=== PATIENT | female | born 2000 | race American Indian/Alaskan Native ===

== ENCOUNTER 2019-03-18 19:18 | Outpatient (CLI) | payer MEDICAID ==
[2019-03-18] MEDS ORDERED: LACTATED RINGERS 1,000 ML IV ONE (20:17)
[2019-03-18 20:57] LABS: Bilirubin,Urine NEG (Negative); Blood,Urine NEG (Negative); Color,Urine Yellow (Yellow); Mucus,Urine FEW /HPF; Protein,Urine <15 mg/dL mg/dL (Negative); Urobilinogen,Urine < 2.0 mg/dL (<2.0)
== END 2019-03-18 22:39 | disposition home or self-care (01) ==
LOC: TRG 19:18
PROVIDERS: ATTEND Obstetrics & Gynecology
DX: O62.9 Abnormality of forces of labor, unspecified (principal); Z3A.25 25 weeks gestation of pregnancy
CPT/HCPCS: 36415; 81001; 82731; 96360; J7120

== ENCOUNTER 2019-04-30 06:43 | Inpatient (IN) | payer MEDICAID ==
[2019-04-30] MEDS ORDERED: LACTATED RINGERS 1,000 ML IV ONE (07:06)
[2019-04-30 09:09] LABS: Bilirubin,Urine NEG (Negative); Blood,Urine NEG (Negative); Color,Urine Straw (Yellow); Protein,Urine <15 mg/dL mg/dL (Negative); Urobilinogen,Urine < 2.0 mg/dL (<2.0)
[2019-04-30] MEDS ORDERED: BRETHINE SUB-Q ONE (10:05)
[2019-04-30] MEDS ORDERED: LACTATED RINGERS 1,000 ML IV SCH ×3 (11:00→14:00)
[2019-04-30] MEDS ORDERED: COLACE PO PRN (13:18)
[2019-04-30] MEDS ORDERED: MAGNESIUM SULFATE 4GM/100ML 4 GM/100 ML BAG IV ONE ×2 (13:26→16:00)
--- NOTE | 2019-04-30 13:34 | History and Physical Report ---
History of Present Illness Date of examination: 04/30/19 Date of admission: 04/30/2019 Chief complaint: LOF, contractions History of present illness: Menstrual History Regularity: regular Duration: 5 LMP: 09/19/2018 LMP reliability: definite LMP character: normal test type: urine test Date: 02/26/2019 BC at conception: none EDC Calculations LMP: 06/26/2019 EDC Confirmation: 06/26/2019 Gestational Age: 22 6/7 weeks Past History : 4 Term Births: 1 Premature Births: 2 Living Children: 3 Para: 3 Mult. Births: 0 Prev : 0 Prev. attempt? 0 Aborta: 0 Elect. Ab: 0 Spont. Ab: 0 Ectopics: 0 # 1 Delivery date: 02/07/2013 Weeks Gestation: 30? labor: yes Delivery type: Anesthesia type: epidural Delivery location: [place] Sex: Female weight: 6#8 Name: Radha Comments: unsure of GA "really early" or why she delivered early... reports induction? 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 live with mother, siblings, and siblings unemployed denies etoh, tobacco, drug use Infection History Hx of STD: none HIV Risk Eval: low risk Hepatitis B Risk Eval: low risk Personal hx. of genital herpes: no Partner hx. of genital herpes: no Rash, Viral, or Febrile illness since last LMP? no Varicella/Chicken Pox Status: Previous Disease TB Risk: no Genetic History Congenital Heart Defect: Mom: no Dad: no Bobby Disease: Mom: no Dad: no Thalassemia Mom: no Dad: no Neural Tube Defect Mom: no Dad: no Down's Syndrome Mom: no Dad: no Tye-Sachs Mom: no Dad: no Sickle Cell Disease/Trait Mom: no Dad: no Hemophilia Mom: no Dad: no Muscular Dystrophy Mom: no Dad: no Cystic Fibrosis Mom: no Dad: no [place] Chorea Mom: no Dad: no Mental Retardation Mom: no Dad: no Fragile X Mom: no Dad: no Other Genetic/Chromosomal Disorder Mom: no Dad: no Child w/other defect Mom: no Dad: no Enviromental Exposures Enviromental Exposures Reviewed Xray Exposure: no Medication, drug, or alcohol use since LMP: no Chemical/Other Exposure: no Exposure to Cat Liter: no Hx of Parvovirus (Fifth Disease): no Occupational Exposure to Children: none Active Medications (reviewed today): None Current Allergies (reviewed today): No known allergies Past History Past Medical History: other (see HPI) Past Surgical History: other (see HPI) 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 (see HPI) Family/Genetic History: other (see HPI) Social history: other (see HPI) - Obstetrical History Expected Date of Delivery: 06/26/19 Actual Gestation: 31 Week(s) 6 Day(s) : 4 Para: 1 Medications and Allergies Allergies Allergy/AdvReac Type Severity Reaction Status Date / Time No Known Allergies Allergy Verified 04/30/19 07:03 Home Medications Medication Instructions Recorded Confirmed Last Taken Type Ferrous Sulfate [Feosol 325 MG tab] 1 tab PO BID 04/30/19 04/30/19 Unknown History Pnv,Calcium 72/Iron/Folic Acid 1 each PO DAILY 04/30/19 04/30/19 04/29/19 21:00 History [ Plus Tablet] 1 Active Meds: Active Medications Acetaminophen (Tylenol) 650 mg PO Q4H PRN PRN Reason: Pain MILD(1-3)/Fever >100.5/[place] Betamethasone Acet/Betameth SodPhos (Celestone Soluspan) 12 mg IM Q24HR HANNA Stop: 05/01/19 10:01 Docusate Sodium (Colace) 100 mg PO Q12H PRN PRN Reason: Constipation Lactated Ringer's (Lactated Ringers) 1,000 mls @ 150 mls/hr IV DIRECT HANNA Last Admin: 04/30/19 10:22 Dose: 150 mls/hr Documented by: Lactated Ringer's (Lactated Ringers) 1,000 mls @ 125 mls/hr IV DIRECT HANNA Lactated Ringer's (Lactated Ringers) 1,000 mls @ 125 mls/hr IV DIRECT HANNA Magnesium Sulfate (Magnesium Sulfate 4gm/100ml) 4 gm in 100 mls @ 300 mls/hr IV ONCE ONE Stop: 04/30/19 13:45 Magnesium Sulfate (Magnesium Sulfate 40gm/1000ml) 40 gm in 1,000 mls @ 50 mls/hr IV DIRECT HANNA Multivitamins/Iron/Calcium ( Vitamin) 1 each PO QDAY HANNA Review of Systems All systems: negative Genitourinary: leakage of fluid, contractions - Vital Signs Vital signs: Vital Signs Temp Resp 99.2 F 20 04/30/19 07:07 04/30/19 07:07 Temp Pulse Resp BP Pulse Ox 97.6 F 88 20 110/65 98 04/30/19 12:24 04/30/19 12:24 04/30/19 12:24 04/30/19 12:24 04/30/19 12:11 - Physical Exam Breasts: Positive: normal Cardiovascular: Regular rate, Normal S1, Normal S2 Abdomen: Positive: normal appearance, soft, normal bowel sounds. Negative: distention, tenderness Genitourinary (Female): Positive: normal external genitalia, normal perenium Vulva: both: normal Vagina: Positive: normal moisture. Negative: discharge Cervix: Negative: lesion, discharge Uterus: Positive: normal size, normal contour Adnexa: both: normal Anus/Rectum: Positive: normal perianal skin, heme negative. Negative: rectal mass, hemorrhoids Extremities: Positive: normal Deep Tendon Reflex Grade: Normal +2 - Obstetrical FHR: auscultation normal Results Result Diagrams: 04/30/19 08:00 All other labs normal. Assessment and Plan 19 y.o. IUP at 31weeks presents to triage with c/o questionable SROM. Pt reports she had intercourse this morning and immediately following she noticed "there was wet liquid coming out" of her vagina. Nitrizine +, US for GIL is 6.6. 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 Irregular contractions noted on TOCO, palpating mild per RN. IV fluids and terb x1 given. Spec examination by CNM shows no fluid coming from cervix, no fluid pooling in vagina. SVE by CNM is 2/50/-3, vertex, IBOW noted on digital examination. Pt reports feeling better, denies any contractions after interventions. Will admit at this time-IV fluids, plan to repeat US for GIL in AM, begin magnesium infusion and give BMZ series per Dr. Fang. Will continue to monitor for signs of ROM and/or labor.
[2019-04-30] MEDS ORDERED: CELESTONE SOLUSPAN IM SCH (14:00)
[2019-04-30] MEDS ORDERED: MAGNESIUM SULFATE 40GM/1000ML 40 GM/1,000 ML BAG IV SCH (14:00)
--- NOTE | 2019-04-30 14:56 | Ultrasound Report ---
ULTRASOUND OB LIMITED History: GIL and presentation, well being Technique: Transabdominal ultrasound with Doppler interrogation. Gestation: Single Position: Cephalic Amniotic Fluid: Slightly decreased GIL = 6.6 cm Heart Rate: 132 BPM
[2019-04-30 14:58] LABS: Basophils % (Auto) 0.5 % (0.0-1.8); Eosinophils # (Auto) 0.1 K/mm3 (0.0-0.4); Eosinophils % (Auto) 2.1 % (0.0-4.3); Hematocrit 23.8 % (30.3-42.9); Hemoglobin 7.6 gm/dl (10.1-14.3); Lymphocytes # (Auto) 1.8 K/mm3 (1.2-5.4); Lymphocytes % (Auto) 31.6 % (13.4-35.0); Mean Corpuscular HGB Conc 32 % (30-34); Mean Corpuscular Volume 78 fl (79-97); Monocytes # (Auto) 0.5 K/mm3 (0.0-0.8); Monocytes % (Auto) 8.3 % (0.0-7.3); Platelet Count 221 K/mm3 (140-440); Red Blood Count 3.05 M/mm3 (3.65-5.03); Red Cell Distribution Width 17.6 % (13.2-15.2)
--- NOTE | 2019-04-30 19:26 | Event Note ---
Date: 04/30/19 RN reports "pt thinks she's leaking again and would like to be checked". Perineum and pads are dry. SVE remains unchanged, bag of water still assessed. Pt reports she is comfortable at this time. Denies any needs, questions, or concerns.
--- NOTE | 2019-04-30 20:52 | Event Note ---
Date: 04/30/19 Magnesium 4.2 per Gerardo in chemistry
[2019-04-30] MEDS: FEOSOL PO SCH (22:00)
[2019-04-30] MEDS: TYLENOL PO PRN (23:13)
--- NOTE | 2019-04-30 23:50 | Event Note ---
Date: 04/30/19 Patient reports feeling more contractions. Irritability noted on TOCO, 3 contractions noted in last hour. Abdomen palpated soft, non tender. One c ontraction noted while at bedside, palpated mild. Offered patient SVE, she declines. Pt declines any intervention at this time. Will continue to monitor.
--- NOTE | 2019-05-01 07:20 | Progress Note ---
<GONZALEZ TO - Last Filed: 05/01/19 07:21> Assessment and Plan - Patient Problems (1) 32 weeks gestation of Onset Date: ~05/01/19 Current Visit: Yes Status: Acute Plan to address problem: pt resting in bed, no physical c/o voiced Pt desires to go home VSS Pt reports +FM, denies any VB, states she has occasional leaking of fluid, none right now. MGSO4 @ 2gm/hr Mag level 5.7 Second dose of BMZ due 1634 US pending for this AM. Will review care with . Continue POC Subjective - Subjective Date of service: 05/01/19 (pt denies any leaking @ this time) Principal diagnosis: IUP 32w0d leaking vaginal fluid cervical chg; hx of PTD Patient reports: movement normal Objective - Vital Signs Vital Signs: Vital Signs - 12hr 04/30/19 04/30/19 04/30/19 19:48 19:53 19:58 Temperature Pulse Rate 95 H 96 H 97 H Respiratory Rate Blood Pressure Blood Pressure [Right] O2 Sat by Pulse 98 97 97 Oximetry 04/30/19 04/30/19 04/30/19 20:00 20:03 20:06 Temperature 98 F Pulse Rate 97 H 98 H 94 H Respiratory 18 Rate Blood Pressure 101/57 Blood Pressure 106/78 [Right] O2 Sat by Pulse 100 96 Oximetry 04/30/19 04/30/19 04/30/19 20:08 20:13 20:18 Temperature Pulse Rate 101 H 101 H 95 H Respiratory Rate Blood Pressure Blood Pressure [Right] O2 Sat by Pulse 95 95 96 Oximetry 04/30/19 04/30/19 04/30/19 20:23 20:28 20:33 Temperature Pulse Rate 95 H 108 H 99 H Respiratory Rate Blood Pressure Blood Pressure [Right] O2 Sat by Pulse 96 96 97 Oximetry 04/30/19 04/30/19 04/30/19 20:38 20:43 20:48 Temperature Pulse Rate 96 H 96 H 96 H Respiratory Rate Blood Pressure Blood Pressure [Right] O2 Sat by Pulse 97 96 97 Oximetry 04/30/19 04/30/19 04/30/19 20:53 20:58 21:03 Temperature Pulse Rate 99 H 100 H 98 H Respiratory Rate Blood Pressure Blood Pressure [Right] O2 Sat by Pulse 96 95 96 Oximetry 04/30/19 04/30/19 04/30/19 21:07 21:08 21:13 Temperature Pulse Rate 93 H 95 H 108 H Respiratory Rate Blood Pressure 82/44 Blood Pressure [Right] O2 Sat by Pulse 97 96 Oximetry 04/30/19 04/30/19 04/30/19 21:18 21:23 21:28 Temperature Pulse Rate 95 H 96 H 96 H Respiratory Rate Blood Pressure Blood Pressure [Right] O2 Sat by Pulse 96 96 96 Oximetry 04/30/19 04/30/19 04/30/19 21:33 21:38 21:43 Temperature Pulse Rate 97 H 98 H 99 H Respiratory Rate Blood Pressure Blood Pressure [Right] O2 Sat by Pulse 96 96 96 Oximetry 04/30/19 04/30/19 04/30/19 21:48 21:53 21:58 Temperature Pulse Rate 100 H 100 H 101 H Respiratory Rate Blood Pressure Blood Pressure [Right] O2 Sat by Pulse 95 95 96 Oximetry 04/30/19 04/30/19 04/30/19 22:03 22:07 22:08 Temperature Pulse Rate 100 H 107 H 107 H Respiratory Rate Blood Pressure 94/55 Blood Pressure [Right] O2 Sat by Pulse 96 96 Oximetry 04/30/19 04/30/19 04/30/19 22:13 22:18 22:23 Temperature Pulse Rate 97 H 101 H 106 H Respiratory Rate Blood Pressure Blood Pressure [Right] O2 Sat by Pulse 96 96 96 Oximetry 04/30/19 04/30/19 04/30/19 22:28 22:33 22:38 Temperature Pulse Rate 105 H 100 H 105 H Respiratory Rate Blood Pressure Blood Pressure [Right] O2 Sat by Pulse 95 98 98 Oximetry 04/30/19 04/30/19 04/30/19 22:43 22:48 22:53 Temperature Pulse Rate 97 H 109 H 97 H Respiratory Rate Blood Pressure Blood Pressure [Right] O2 Sat by Pulse 98 98 99 Oximetry 04/30/19 04/30/19 04/30/19 22:58 23:03 23:07 Temperature Pulse Rate 105 H 100 H 99 H Respiratory Rate Blood Pressure 101/59 Blood Pressure [Right] O2 Sat by Pulse 100 99 Oximetry 04/30/19 04/30/19 04/30/19 23:08 23:13 23:18 Temperature Pulse Rate 102 H 105 H 100 H Respiratory Rate Blood Pressure Blood Pressure [Right] O2 Sat by Pulse 99 98 99 Oximetry 04/30/19 04/30/19 04/30/19 23:23 23:28 23:30 Temperature Pulse Rate 102 H 106 H 115 H Respiratory Rate Blood Pressure Blood Pressure [Right] O2 Sat by Pulse 98 97 94 Oximetry 04/30/19 04/30/19 04/30/19 23:33 23:38 23:43 Temperature Pulse Rate 104 H 100 H 97 H Respiratory Rate Blood Pressure Blood Pressure [Right] O2 Sat by Pulse 97 97 97 Oximetry 04/30/19 04/30/19 04/30/19 23:48 23:53 23:58 Temperature Pulse Rate 104 H 97 H 103 H Respiratory Rate Blood Pressure Blood Pressure [Right] O2 Sat by Pulse 97 97 96 Oximetry 05/01/19 05/01/19 05/01/19 00:03 00:08 00:13 Temperature Pulse Rate 107 H 100 H 102 H Respiratory Rate Blood Pressure Blood Pressure [Right] O2 Sat by Pulse 97 98 98 Oximetry 05/01/19 05/01/19 05/01/19 00:18 00:23 00:28 Temperature 98.4 F Pulse Rate 88 104 H 100 H Respiratory Rate Blood Pressure Blood Pressure 109/59 [Right] O2 Sat by Pulse 96 96 97 Oximetry 05/01/19 05/01/19 05/01/19 00:33 00:38 00:43 Temperature Pulse Rate 103 H 106 H 102 H Respiratory Rate Blood Pressure Blood Pressure [Right] O2 Sat by Pulse 97 97 98 Oximetry 05/01/19 05/01/19 05/01/19 00:48 00:53 00:58 Temperature Pulse Rate 102 H 106 H 99 H Respiratory Rate Blood Pressure Blood Pressure [Right] O2 Sat by Pulse 98 98 97 Oximetry 05/01/19 05/01/19 05/01/19 01:03 01:07 01:08 Temperature Pulse Rate 101 H 98 H 100 H Respiratory Rate Blood Pressure 97/53 Blood Pressure [Right] O2 Sat by Pulse 97 96 Oximetry 05/01/19 05/01/19 05/01/19 01:13 01:18 01:23 Temperature Pulse Rate 102 H 98 H 114 H Respiratory Rate Blood Pressure Blood Pressure [Right] O2 Sat by Pulse 96 97 97 Oximetry 05/01/19 05/01/19 05/01/19 01:28 01:33 01:38 Temperature Pulse Rate 98 H 102 H 100 H Respiratory Rate Blood Pressure Blood Pressure [Right] O2 Sat by Pulse 98 97 96 Oximetry 05/01/19 05/01/19 05/01/19 01:43 01:48 01:53 Temperature Pulse Rate 101 H 102 H 102 H Respiratory Rate Blood Pressure Blood Pressure [Right] O2 Sat by Pulse 96 96 96 Oximetry 05/01/19 05/01/19 05/01/19 01:58 02:03 02:07 Temperature Pulse Rate 98 H 103 H 107 H Respiratory Rate Blood Pressure 92/50 Blood Pressure [Right] O2 Sat by Pulse 96 96 Oximetry 05/01/19 05/01/19 05/01/19 02:08 02:13 02:18 Temperature Pulse Rate 98 H 98 H 112 H Respiratory Rate Blood Pressure Blood Pressure [Right] O2 Sat by Pulse 98 97 98 Oximetry 05/01/19 05/01/19 05/01/19 02:23 02:28 02:33 Temperature Pulse Rate 103 H 98 H 102 H Respiratory Rate Blood Pressure Blood Pressure [Right] O2 Sat by Pulse 96 95 96 Oximetry 05/01/19 05/01/19 05/01/19 02:38 02:43 02:48 Temperature Pulse Rate 105 H 105 H 107 H Respiratory Rate Blood Pressure Blood Pressure [Right] O2 Sat by Pulse 97 96 97 Oximetry 05/01/19 05/01/19 05/01/19 02:53 02:58 03:03 Temperature Pulse Rate 105 H 108 H 113 H Respiratory Rate Blood Pressure Blood Pressure [Right] O2 Sat by Pulse 97 97 96 Oximetry 05/01/19 05/01/19 05/01/19 03:07 03:08 03:13 Temperature Pulse Rate 104 H 104 H 105 H Respiratory Rate Blood Pressure 89/54 Blood Pressure [Right] O2 Sat by Pulse 96 97 Oximetry 05/01/19 05/01/19 05/01/19 03:18 03:23 03:28 Temperature Pulse Rate 107 H 107 H 107 H Respiratory Rate Blood Pressure Blood Pressure [Right] O2 Sat by Pulse 97 97 97 Oximetry 05/01/19 05/01/19 05/01/19 03:33 03:38 03:43 Temperature Pulse Rate 104 H 106 H 105 H Respiratory Rate Blood Pressure Blood Pressure [Right] O2 Sat by Pulse 97 97 96 Oximetry 05/01/19 05/01/19 05/01/19 03:48 03:53 03:58 Temperature Pulse Rate 111 H 109 H 108 H Respiratory Rate Blood Pressure Blood Pressure [Right] O2 Sat by Pulse 97 97 97 Oximetry 05/01/19 05/01/19 05/01/19 04:00 04:03 04:07 Temperature 98.4 F Pulse Rate 106 H 106 H 106 H Respiratory 18 Rate Blood Pressure 89/54 Blood Pressure 89/54 [Right] O2 Sat by Pulse 100 97 Oximetry 05/01/19 05/01/19 05/01/19 04:08 04:13 04:18 Temperature Pulse Rate 108 H 103 H 103 H Respiratory Rate Blood Pressure Blood Pressure [Right] O2 Sat by Pulse 96 96 96 Oximetry 05/01/19 05/01/19 05/01/19 04:23 04:28 04:33 Temperature Pulse Rate 109 H 110 H 106 H Respiratory Rate Blood Pressure Blood Pressure [Right] O2 Sat by Pulse 96 96 96 Oximetry 05/01/19 05/01/19 05/01/19 04:38 04:43 04:48 Temperature Pulse Rate 108 H 105 H 107 H Respiratory Rate Blood Pressure Blood Pressure [Right] O2 Sat by Pulse 96 96 96 Oximetry 05/01/19 05/01/19 05/01/19 04:53 04:58 05:03 Temperature Pulse Rate 105 H 108 H 104 H Respiratory Rate Blood Pressure Blood Pressure [Right] O2 Sat by Pulse 96 96 96 Oximetry 05/01/19 05/01/19 05/01/19 05:07 05:08 05:13 Temperature Pulse Rate 105 H 105 H 108 H Respiratory Rate Blood Pressure 87/43 Blood Pressure [Right] O2 Sat by Pulse 94 96 96 Oximetry 05/01/19 05/01/19 05/01/19 05:18 05:23 05:28 Temperature Pulse Rate 106 H 113 H 102 H Respiratory Rate Blood Pressure Blood Pressure [Right] O2 Sat by Pulse 96 97 97 Oximetry 05/01/19 05/01/19 05/01/19 05:33 05:38 05:43 Temperature Pulse Rate 107 H 104 H 111 H Respiratory Rate Blood Pressure Blood Pressure [Right] O2 Sat by Pulse 97 97 98 Oximetry 05/01/19 05/01/19 05/01/19 05:48 05:53 05:58 Temperature Pulse Rate 108 H 112 H 114 H Respiratory Rate Blood Pressure Blood Pressure [Right] O2 Sat by Pulse 97 97 97 Oximetry 05/01/19 05/01/19 05/01/19 06:03 06:07 06:08 Temperature Pulse Rate 103 H 100 H 103 H Respiratory Rate Blood Pressure 86/49 Blood Pressure [Right] O2 Sat by Pulse 97 97 Oximetry 05/01/19 05/01/19 05/01/19 06:13 06:18 06:23 Temperature Pulse Rate 107 H 102 H 102 H Respiratory Rate Blood Pressure Blood Pressure [Right] O2 Sat by Pulse 97 96 96 Oximetry 05/01/19 05/01/19 05/01/19 06:28 06:33 06:38 Temperature Pulse Rate 102 H 103 H 102 H Respiratory Rate Blood Pressure Blood Pressure [Right] O2 Sat by Pulse 96 96 96 Oximetry 05/01/19 05/01/19 05/01/19 06:43 06:48 06:53 Temperature Pulse Rate 101 H 101 H 107 H Respiratory Rate Blood Pressure Blood Pressure [Right] O2 Sat by Pulse 96 96 96 Oximetry 05/01/19 05/01/19 05/01/19 06:58 07:03 07:07 Temperature Pulse Rate 104 H 108 H 102 H Respiratory Rate Blood Pressure 93/55 Blood Pressure [Right] O2 Sat by Pulse 97 97 Oximetry 05/01/19 05/01/19 07:08 07:13 Temperature Pulse Rate 103 H 102 H Respiratory Rate Blood Pressure Blood Pressure [Right] O2 Sat by Pulse 96 96 Oximetry - Exam Breasts: deferred Cardiovascular: Regular rate Lungs: Clear to auscultation Abdomen: Present: normal appearance, soft. Absent: distention, tenderness Uterus: Present: normal FHR: auscultation normal, category 1 Uterine Contraction Monitor Mode: External Uterine Contraction Pattern: Absent Uterine Tone Measurement Phase: Resting Extremities: normal Deep Tendon Reflex Grade: Normal +2 - Labs Labs: Abnormal Labs 04/30/19 05/01/19 05/01/19 08:00 01:17 05:31 RBC 3.05 L Hgb 7.6 L Hct 23.8 L MCV 78 L MCH 25 L RDW 17.6 H Mck[place] % (Auto) 8.3 H Magnesium 5.70 H 5.70 H Laboratory Results - last 24 hr 04/30/19 04/30/19 04/30/19 07:56 08:00 08:00 WBC 5.7 RBC 3.05 L Hgb 7.6 L Hct 23.8 L MCV 78 L MCH 25 L MCHC 32 RDW 17.6 H Plt Count 221 Lymph % (Auto) 31.6 Mckinley % (Auto) 8.3 H Eos % (Auto) 2.1 Baso % (Auto) 0.5 Lymph # 1.8 Mckinley # 0.5 Eos # 0.1 Baso # 0.0 Seg Neutrophils % 57.5 Seg Neutrophils # 3.3 Magnesium 1.90 Urine Color Straw Urine Turbidity Clear Urine pH 7.0 Ur Specific [place] 1.003 Urine Protein <15 mg/dl Urine Glucose (UA) Neg Urine Ketones Neg Urine Blood Neg Urine Nitrite Neg Urine Bilirubin Neg Urine Urobilinogen < 2.0 Ur Leukocyte Esterase Tr Urine WBC (Auto) 1.0 Urine RBC (Auto) 1.0 Blood Type Antibody Screen Antibody Identification 04/30/19 05/01/19 05/01/19 16:05 01:17 05:31 WBC RBC Hgb Hct MCV MCH MCHC RDW Plt Count Lymph % (Auto) Mckinley % (Auto) Eos % (Auto) Baso % (Auto) Lymph # Mck[place] # Eos # Baso # Seg Neutrophils % Seg Neutrophils # Magnesium 5.70 H 5.70 H Urine Color Urine Turbidity Urine pH Ur Specific [place] Urine Protein Urine Glucose (UA) Urine Ketones Urine Blood Urine Nitrite Urine Bilirubin Urine Urobilinogen Ur Leukocyte Esterase Urine WBC (Auto) Urine RBC (Auto) Blood Type B NEGATIVE Antibody Screen Positive Antibody Identification Anti-D (Passively Aquired) <ASHUTOSH HUMMEL D - Last Filed: 05/01/19 13:34> Assessment and Plan - Patient Problems (1) 32 weeks gestation of Onset Date: ~05/01/19 Current Visit: Yes Status: Acute (2) labor in third trimester Current Visit: Yes Status: Acute Qualifiers: Fetus number: single or unspecified fetus Plan to address problem: She will receive her 2nd steroid dose today, will continue MgSO4 until 24hrs after 2nd dose. (3) Oligohydramnios in third trimester Current Visit: Yes Status: Acute Qualifiers: Fetus number: single or unspecified fetus Qualified Code(s): O41.03X0 - Oligohydramnios, third trimester, not applicable or unspecified Plan to address problem: Per CNM no evidence of ROM. Will proceed with OB US for EFW, NICU consultation. Further plan of care after results obtained Objective - Vital Signs Vital Signs: Vital Signs - 12hr 05/01/19 05/01/19 05/01/19 01:23 01:28 01:33 Temperature Pulse Rate 114 H 98 H 102 H Respiratory Rate Blood Pressure Blood Pressure [Right] O2 Sat by Pulse 97 98 97 Oximetry 05/01/19 05/01/19 05/01/19 01:38 01:43 01:48 Temperature Pulse Rate 100 H 101 H 102 H Respiratory Rate Blood Pressure Blood Pressure [Right] O2 Sat by Pulse 96 96 96 Oximetry 05/01/19 05/01/19 05/01/19 01:53 01:58 02:03 Temperature Pulse Rate 102 H 98 H 103 H Respiratory Rate Blood Pressure Blood Pressure [Right] O2 Sat by Pulse 96 96 96 Oximetry 05/01/19 05/01/19 05/01/19 02:07 02:08 02:13 Temperature Pulse Rate 107 H 98 H 98 H Respiratory Rate Blood Pressure 92/50 Blood Pressure [Right] O2 Sat by Pulse 98 97 Oximetry 05/01/19 05/01/19 05/01/19 02:18 02:23 02:28 Temperature Pulse Rate 112 H 103 H 98 H Respiratory Rate Blood Pressure Blood Pressure [Right] O2 Sat by Pulse 98 96 95 Oximetry 05/01/19 05/01/19 05/01/19 02:33 02:38 02:43 Temperature Pulse Rate 102 H 105 H 105 H Respiratory Rate Blood Pressure Blood Pressure [Right] O2 Sat by Pulse 96 97 96 Oximetry 05/01/19 05/01/19 05/01/19 02:48 02:53 02:58 Temperature Pulse Rate 107 H 105 H 108 H Respiratory Rate Blood Pressure Blood Pressure [Right] O2 Sat by Pulse 97 97 97 Oximetry 05/01/19 05/01/19 05/01/19 03:03 03:07 03:08 Temperature Pulse Rate 113 H 104 H 104 H Respiratory Rate Blood Pressure 89/54 Blood Pressure [Right] O2 Sat by Pulse 96 96 Oximetry 05/01/19 05/01/19 05/01/19 03:13 03:18 03:23 Temperature Pulse Rate 105 H 107 H 107 H Respiratory Rate Blood Pressure Blood Pressure [Right] O2 Sat by Pulse 97 97 97 Oximetry 05/01/19 05/01/19 05/01/19 03:28 03:33 03:38 Temperature Pulse Rate 107 H 104 H 106 H Respiratory Rate Blood Pressure Blood Pressure [Right] O2 Sat by Pulse 97 97 97 Oximetry 05/01/19 05/01/19 05/01/19 03:43 03:48 03:53 Temperature Pulse Rate 105 H 111 H 109 H Respiratory Rate Blood Pressure Blood Pressure [Right] O2 Sat by Pulse 96 97 97 Oximetry 05/01/19 05/01/19 05/01/19 03:58 04:00 04:03 Temperature 98.4 F Pulse Rate 108 H 106 H 106 H Respiratory 18 Rate Blood Pressure Blood Pressure 89/54 [Right] O2 Sat by Pulse 97 100 97 Oximetry 05/01/19 05/01/19 05/01/19 04:07 04:08 04:13 Temperature Pulse Rate 106 H 108 H 103 H Respiratory Rate Blood Pressure 89/54 Blood Pressure [Right] O2 Sat by Pulse 96 96 Oximetry 05/01/19 05/01/19 05/01/19 04:18 04:23 04:28 Temperature Pulse Rate 103 H 109 H 110 H Respiratory Rate Blood Pressure Blood Pressure [Right] O2 Sat by Pulse 96 96 96 Oximetry 05/01/19 05/01/19 05/01/19 04:33 04:38 04:43 Temperature Pulse Rate 106 H 108 H 105 H Respiratory Rate Blood Pressure Blood Pressure [Right] O2 Sat by Pulse 96 96 96 Oximetry 05/01/19 05/01/19 05/01/19 04:48 04:53 04:58 Temperature Pulse Rate 107 H 105 H 108 H Respiratory Rate Blood Pressure Blood Pressure [Right] O2 Sat by Pulse 96 96 96 Oximetry 05/01/19 05/01/19 05/01/19 05:03 05:07 05:08 Temperature Pulse Rate 104 H 105 H 105 H Respiratory Rate Blood Pressure 87/43 Blood Pressure [Right] O2 Sat by Pulse 96 94 96 Oximetry 05/01/19 05/01/19 05/01/19 05:13 05:18 05:23 Temperature Pulse Rate 108 H 106 H 113 H Respiratory Rate Blood Pressure Blood Pressure [Right] O2 Sat by Pulse 96 96 97 Oximetry 05/01/19 05/01/19 05/01/19 05:28 05:33 05:38 Temperature Pulse Rate 102 H 107 H 104 H Respiratory Rate Blood Pressure Blood Pressure [Right] O2 Sat by Pulse 97 97 97 Oximetry 05/01/19 05/01/19 05/01/19 05:43 05:48 05:53 Temperature Pulse Rate 111 H 108 H 112 H Respiratory Rate Blood Pressure Blood Pressure [Right] O2 Sat by Pulse 98 97 97 Oximetry 05/01/19 05/01/19 05/01/19 05:58 06:03 06:07 Temperature Pulse Rate 114 H 103 H 100 H Respiratory Rate Blood Pressure 86/49 Blood Pressure [Right] O2 Sat by Pulse 97 97 Oximetry 05/01/19 05/01/19 05/01/19 06:08 06:13 06:18 Temperature Pulse Rate 103 H 107 H 102 H Respiratory Rate Blood Pressure Blood Pressure [Right] O2 Sat by Pulse 97 97 96 Oximetry 05/01/19 05/01/19 05/01/19 06:23 06:28 06:33 Temperature Pulse Rate 102 H 102 H 103 H Respiratory Rate Blood Pressure Blood Pressure [Right] O2 Sat by Pulse 96 96 96 Oximetry 05/01/19 05/01/19 05/01/19 06:38 06:43 06:48 Temperature Pulse Rate 102 H 101 H 101 H Respiratory Rate Blood Pressure Blood Pressure [Right] O2 Sat by Pulse 96 96 96 Oximetry 05/01/19 05/01/19 05/01/19 06:53 06:58 07:03 Temperature Pulse Rate 107 H 104 H 108 H Respiratory Rate Blood Pressure Blood Pressure [Right] O2 Sat by Pulse 96 97 97 Oximetry 05/01/19 05/01/19 05/01/19 07:05 07:07 07:08 Temperature 98.7 F Pulse Rate 102 H 103 H Respiratory 18 Rate Blood Pressure 93/55 Blood Pressure [Right] O2 Sat by Pulse 96 Oximetry 05/01/19 05/01/19 05/01/19 07:13 07:18 07:23 Temperature Pulse Rate 102 H 105 H 105 H Respiratory Rate Blood Pressure Blood Pressure [Right] O2 Sat by Pulse 96 97 97 Oximetry 05/01/19 05/01/19 05/01/19 07:28 07:33 07:38 Temperature Pulse Rate 100 H 101 H 101 H Respiratory Rate Blood Pressure Blood Pressure [Right] O2 Sat by Pulse 96 97 97 Oximetry 05/01/19 05/01/19 05/01/19 07:43 07:48 07:53 Temperature Pulse Rate 102 H 94 H 95 H Respiratory Rate Blood Pressure Blood Pressure [Right] O2 Sat by Pulse 97 96 96 Oximetry 05/01/19 05/01/19 05/01/19 07:58 08:03 08:07 Temperature Pulse Rate 94 H 94 H 93 H Respiratory Rate Blood Pressure 99/51 Blood Pressure [Right] O2 Sat by Pulse 96 96 Oximetry 05/01/19 05/01/19 05/01/19 08:08 08:13 08:15 Temperature 98.2 F Pulse Rate 102 H 90 Respiratory 18 Rate Blood Pressure Blood Pressure [Right] O2 Sat by Pulse 97 98 Oximetry 05/01/19 05/01/19 05/01/19 08:18 08:23 08:28 Temperature Pulse Rate 89 96 H 91 H Respiratory Rate Blood Pressure Blood Pressure [Right] O2 Sat by Pulse 97 97 97 Oximetry 05/01/19 05/01/19 05/01/19 08:33 08:38 08:43 Temperature Pulse Rate 95 H 91 H 93 H Respiratory Rate Blood Pressure Blood Pressure [Right] O2 Sat by Pulse 97 97 98 Oximetry 05/01/19 05/01/19 05/01/19 08:48 08:53 08:58 Temperature Pulse Rate 109 H 101 H 98 H Respiratory Rate Blood Pressure Blood Pressure [Right] O2 Sat by Pulse 98 100 100 Oximetry 05/01/19 05/01/19 05/01/19 09:03 09:07 09:08 Temperature Pulse Rate 87 85 84 Respiratory Rate Blood Pressure 90/50 Blood Pressure [Right] O2 Sat by Pulse 100 100 Oximetry 05/01/19 05/01/19 05/01/19 09:13 09:18 09:23 Temperature Pulse Rate 93 H 88 89 Respiratory Rate Blood Pressure Blood Pressure [Right] O2 Sat by Pulse 99 98 98 Oximetry 05/01/19 05/01/19 05/01/19 09:28 09:33 09:37 Temperature Pulse Rate 88 92 H 93 H Respiratory Rate Blood Pressure Blood Pressure [Right] O2 Sat by Pulse 100 100 89 Oximetry 05/01/19 05/01/19 05/01/19 09:38 09:43 09:48 Temperature Pulse Rate 87 92 H 94 H Respiratory Rate Blood Pressure Blood Pressure [Right] O2 Sat by Pulse 100 98 97 Oximetry 05/01/19 05/01/19 05/01/19 09:53 09:58 10:03 Temperature Pulse Rate 105 H 90 95 H Respiratory Rate Blood Pressure Blood Pressure [Right] O2 Sat by Pulse 97 99 99 Oximetry 05/01/19 05/01/19 05/01/19 10:07 10:08 10:13 Temperature Pulse Rate 91 H 95 H 93 H Respiratory Rate Blood Pressure 80/45 Blood Pressure [Right] O2 Sat by Pulse 98 97 Oximetry 05/01/19 05/01/19 05/01/19 10:18 10:23 10:28 Temperature Pulse Rate 91 H 93 H 88 Respiratory Rate Blood Pressure Blood Pressure [Right] O2 Sat by Pulse 96 97 96 Oximetry 05/01/19 05/01/19 05/01/19 10:30 10:33 10:38 Temperature 98.1 F Pulse Rate 94 H 90 Respiratory 18 Rate Blood Pressure Blood Pressure [Right] O2 Sat by Pulse 97 96 Oximetry 05/01/19 05/01/19 05/01/19 10:43 10:48 10:53 Temperature Pulse Rate 91 H 89 90 Respiratory Rate Blood Pressure Blood Pressure [Right] O2 Sat by Pulse 96 96 95 Oximetry 05/01/19 05/01/19 05/01/19 10:58 11:03 11:07 Temperature Pulse Rate 103 H 91 H 89 Respiratory Rate Blood Pressure 88/45 Blood Pressure [Right] O2 Sat by Pulse 98 95 Oximetry 05/01/19 05/01/19 05/01/19 11:08 11:13 11:18 Temperature Pulse Rate 91 H 94 H 91 H Respiratory Rate Blood Pressure Blood Pressure [Right] O2 Sat by Pulse 95 95 95 Oximetry 05/01/19 05/01/19 05/01/19 11:23 11:28 11:33 Temperature Pulse Rate 91 H 104 H 100 H Respiratory Rate Blood Pressure Blood Pressure [Right] O2 Sat by Pulse 95 96 95 Oximetry 05/01/19 05/01/19 05/01/19 11:34 11:38 11:43 Temperature Pulse Rate 96 H 97 H 102 H Respiratory Rate Blood Pressure Blood Pressure [Right] O2 Sat by Pulse 94 95 96 Oximetry 05/01/19 05/01/19 05/01/19 11:44 11:48 11:49 Temperature Pulse Rate 103 H 95 H 97 H Respiratory Rate Blood Pressure Blood Pressure [Right] O2 Sat by Pulse 94 95 94 Oximetry 05/01/19 05/01/19 05/01/19 11:53 11:58 12:03 Temperature Pulse Rate 97 H 94 H 96 H Respiratory Rate Blood Pressure Blood Pressure [Right] O2 Sat by Pulse 95 96 97 Oximetry 05/01/19 05/01/19 05/01/19 12:07 12:08 12:13 Temperature Pulse Rate 92 H 94 H 98 H Respiratory Rate Blood Pressure 98/55 Blood Pressure [Right] O2 Sat by Pulse 96 97 Oximetry 05/01/19 05/01/19 05/01/19 12:18 12:23 12:28 Temperature Pulse Rate 97 H 92 H 87 Respiratory Rate Blood Pressure Blood Pressure [Right] O2 Sat by Pulse 98 98 98 Oximetry 05/01/19 05/01/19 05/01/19 12:33 12:38 12:43 Temperature Pulse Rate 90 90 90 Respiratory Rate Blood Pressure Blood Pressure [Right] O2 Sat by Pulse 100 99 100 Oximetry 05/01/19 05/01/19 05/01/19 12:48 12:51 12:53 Temperature Pulse Rate 96 H 106 H 93 H Respiratory Rate Blood Pressure Blood Pressure [Right] O2 Sat by Pulse 98 93 99 Oximetry 05/01/19 05/01/19 05/01/19 12:58 13:03 13:07 Temperature Pulse Rate 92 H 100 H 91 H Respiratory Rate Blood Pressure 99/61 Blood Pressure [Right] O2 Sat by Pulse 99 99 Oximetry 05/01/19 05/01/19 05/01/19 13:08 13:13 13:18 Temperature Pulse Rate 98 H 111 H 95 H Respiratory Rate Blood Pressure Blood Pressure [Right] O2 Sat by Pulse 99 96 95 Oximetry - Labs Labs: Abnormal Labs 04/30/19 05/01/19 05/01/19 08:00 01:17 05:31 RBC 3.05 L Hgb 7.6 L Hct 23.8 L MCV 78 L MCH 25 L RDW 17.6 H [place] % (Auto) 8.3 H Magnesium 5.70 H 5.70 H 05/01/19 11:22 RBC Hgb Hct MCV MCH RDW [place] % (Auto) Magnesium 6.00 H Laboratory Results - last 24 hr 04/30/19 04/30/19 04/30/19 08:00 08:00 16:05 WBC 5.7 RBC 3.05 L Hgb 7.6 L Hct 23.8 L MCV 78 L MCH 25 L MCHC 32 RDW 17.6 H Plt Count 221 Lymph % (Auto) 31.6 [place] % (Auto) 8.3 H Eos % (Auto) 2.1 Baso % (Auto) 0.5 Lymph # 1.8 [place] # 0.5 Eos # 0.1 Baso # 0.0 Seg Neutrophils % 57.5 Seg Neutrophils # 3.3 Magnesium 1.90 Blood Type B NEGATIVE Antibody Screen Positive Antibody Identification Anti-D (Passively Aquired) 05/01/19 05/01/19 05/01/19 01:17 05:31 11:22 WBC RBC Hgb Hct MCV MCH MCHC RDW Plt Count Lymph % (Auto) [place] % (Auto) Eos % (Auto) Baso % (Auto) Lymph # [place] # Eos # Baso # Seg Neutrophils % Seg Neutrophils # Magnesium 5.70 H 5.70 H 6.00 H Blood Type Antibody Screen Antibody Identification
[2019-05-01] MEDS ORDERED: FOLIC ACID PO SCH (10:00)
[2019-05-01] MEDS ORDERED: IRON PO SCH (10:00)
[2019-05-01] MEDS ORDERED: PNV CALCIUM PO SCH (10:00)
--- NOTE | 2019-05-01 10:09 | Ultrasound Report ---
ULTRASOUND OB LIMITED History: Rupture of membranes Technique: Transabdominal ultrasound with Doppler interrogation. Gestation: Single Position: Cephalic Amniotic Fluid: Decreased GIL = 6.0 cm Heart Rate: 123 BPM
[2019-05-01] MEDS: ZITHROMAX 500 MG in NACL 0.9% 250ML 250 ML IV SCH (14:41)
[2019-05-01] MEDS ORDERED: CELESTONE SOLUSPAN IM SCH (17:18)
[2019-05-01] MEDS: AMPICILLIN/NS 2 GM/100 ML 2 GM/100 ML BAG IV SCH (17:42)
--- NOTE | 2019-05-01 17:52 | Event Note ---
Date: 05/01/19 (Pt " I thought I was going to have my baby.") Sterile speculum exam done Cervix is closed Sterile slide Negative ferning, negative pooling. MGSO4 decreased to 1gm/hr. Pt is very frustrated. Tried to explain rationale for BMZ, MGSO4, neuro protection, and why we are repeating the US in the AM. "I just don't want to be here I thought I was going to have my baby. All my babies have been born early." Ask again @ any questions or concerns. "I just want to sleep." aware
--- NOTE | 2019-05-01 18:20 | Ultrasound Report ---
PROCEDURE: US OB FOLLOW UP TECHNIQUE: Ultrasound obstetrical transabdominal HISTORY: labor COMPARISONS: FINDINGS: Single live intrauterine gestation present in cephalic presentation cardiac activity present heart rate is 120 bpm Cervical length is 2.4 cm by transabdominal approach and 1.9 cm by translabial approach biometric measurements were obtained Biparietal diameter 20 weeks 6 days. Head circumference 31 weeks 1 day. Abdominal circumference 31 weeks 2 days Femur length 33 weeks 1 day. Estimated weight today is 1820 g Composite gestational age is 31 weeks 3 days IMPRESSION: Cervical thinning Single live intrauterine gestation estimated at 31 weeks 3 days. This document is electronically signed by Randy Powell MD., May 01 2019 06:18:46 PM ET
[2019-05-01] MEDS: TYLENOL PO PRN (19:55)
--- NOTE | 2019-05-01 21:45 | Consultation ---
Consult Note - Parent Education I met with parent(s) and discussed the following:: Need for NICU admission, Poss ible need for intubation and surfactant or other resp support, Temperature regulation, Head ultrasounds to evaluate IVH, Eye exams for ROP screening, Possible need for IV fluids/TPN and IV antibiotics, Possible need for umbilical lines, Importance of providing breast milk & encouraged pumping aft delivery, Donor breast milk if baby meets criteria after , Slow feeding advancement and monitoring of tolerance. NG/OG feeds, Need to monitor for jaundice, Data for survival & survival without significant co-morbidities Parent(s) demonstrated understanding of all the information:: Yes Assessment and Plan - Assessment Gestation:: 32 Estimated Weight: 1820 Baby's name: Serenity - Plan Plan: Agree with Mag & steroids Will attend delivery Please call NICU with questions
[2019-05-02] MEDS: AMPICILLIN/NS 2 GM/100 ML 2 GM/100 ML BAG IV SCH ×4 (00:08→19:01)
--- NOTE | 2019-05-02 07:23 | Progress Note ---
Assessment and Plan 19y/o @ 32+1 weeks, SROM ruled out. Monitoring for labor and oligohydramnios. pt currently denies leaking or bleeding, reports feeling irregular ctx. Plan to d/c mag @ 1700 tonight (24h post second dose of BMZ.) Consulted with Dr. harden. waiting on repeat GIL. - Patient Problems (1) 32 weeks gestation of Onset Date: ~05/01/19 Current Visit: Yes Status: Acute (2) Oligohydramnios in third trimester Current Visit: Yes Status: Acute Qualifiers: Fetus number: single or unspecified fetus Qualified Code(s): O41.03X0 - Oligohydramnios, third trimester, not applicable or unspecified Plan to address problem: pt denies any leaking u/s ordered for repeat GIL today cont monitoring (3) labor in third trimester Current Visit: Yes Status: Acute Qualifiers: Fetus number: single or unspecified fetus Plan to address problem: steroids completed @ 1720 05/01/19 Orders to stop mag 24h after second dose of steroids. Continue to monitor for s/s of labor Subjective - Subjective Date of service: 05/02/19 Principal diagnosis: IUP 32w1d: labor, BMZ completed Patient reports: movement normal, no loss of fluid, no vaginal bleeding, no contractions Objective - Vital Signs Vital Signs: Vital Signs - 12hr 05/01/19 05/01/19 05/01/19 19:23 19:28 19:33 Temperature Pulse Rate 97 H 96 H 98 H Respiratory Rate Blood Pressure O2 Sat by Pulse 97 97 97 Oximetry 05/01/19 05/01/19 05/01/19 19:37 19:38 19:43 Temperature Pulse Rate 97 H 98 H 98 H Respiratory Rate Blood Pressure 91/53 O2 Sat by Pulse 96 96 Oximetry 05/01/19 05/01/19 05/01/19 19:47 19:48 19:53 Temperature 97.6 F Pulse Rate 109 H 95 H Respiratory Rate Blood Pressure O2 Sat by Pulse 98 99 Oximetry 05/01/19 05/01/19 05/01/19 19:58 20:03 20:07 Temperature Pulse Rate 104 H 99 H 91 H Respiratory Rate Blood Pressure 93/51 O2 Sat by Pulse 100 100 Oximetry 05/01/19 05/01/19 05/01/19 20:08 20:13 20:18 Temperature Pulse Rate 97 H 95 H 102 H Respiratory Rate Blood Pressure O2 Sat by Pulse 100 100 100 Oximetry 05/01/19 05/01/19 05/01/19 20:23 20:28 20:33 Temperature Pulse Rate 92 H 92 H 98 H Respiratory Rate Blood Pressure O2 Sat by Pulse 100 100 100 Oximetry 05/01/19 05/01/19 05/01/19 20:37 20:38 20:43 Temperature Pulse Rate 98 H 104 H 103 H Respiratory Rate Blood Pressure 91/56 O2 Sat by Pulse 100 99 Oximetry 05/01/19 05/01/19 05/01/19 20:48 20:53 20:58 Temperature Pulse Rate 99 H 97 H 96 H Respiratory Rate Blood Pressure O2 Sat by Pulse 99 99 99 Oximetry 05/01/19 05/01/19 05/01/19 21:03 21:07 21:08 Temperature Pulse Rate 105 H 105 H 105 H Respiratory Rate Blood Pressure O2 Sat by Pulse 99 88 88 Oximetry 05/01/19 05/01/19 05/01/19 21:13 21:18 21:23 Temperature Pulse Rate 107 H 107 H 106 H Respiratory Rate Blood Pressure O2 Sat by Pulse 100 100 100 Oximetry 05/01/19 05/01/19 05/01/19 21:28 21:33 21:35 Temperature Pulse Rate 106 H 103 H Respiratory 18 Rate Blood Pressure O2 Sat by Pulse 100 100 Oximetry 05/01/19 05/01/19 05/01/19 21:38 21:43 21:48 Temperature Pulse Rate 105 H 102 H 108 H Respiratory Rate Blood Pressure 101/58 O2 Sat by Pulse 100 100 99 Oximetry 05/01/19 05/01/19 05/01/19 21:53 21:58 22:03 Temperature Pulse Rate 103 H 99 H 101 H Respiratory Rate Blood Pressure O2 Sat by Pulse 100 100 100 Oximetry 05/01/19 05/01/19 05/01/19 22:07 22:08 22:13 Temperature Pulse Rate 105 H 109 H 103 H Respiratory Rate Blood Pressure 97/52 O2 Sat by Pulse 100 100 Oximetry 05/01/19 05/01/19 05/01/19 22:18 22:23 22:28 Temperature Pulse Rate 104 H 116 H 103 H Respiratory Rate Blood Pressure O2 Sat by Pulse 100 100 100 Oximetry 05/01/19 05/01/19 05/01/19 22:33 22:38 22:43 Temperature Pulse Rate 106 H 105 H 110 H Respiratory Rate Blood Pressure 98/46 O2 Sat by Pulse 100 100 99 Oximetry 05/01/19 05/01/19 05/01/19 22:48 22:53 22:58 Temperature Pulse Rate 108 H 107 H 101 H Respiratory Rate Blood Pressure O2 Sat by Pulse 100 99 99 Oximetry 05/01/19 05/01/19 05/01/19 23:03 23:07 23:08 Temperature Pulse Rate 103 H 105 H 109 H Respiratory Rate Blood Pressure 100/54 O2 Sat by Pulse 99 97 Oximetry 05/01/19 05/01/19 05/01/19 23:13 23:18 23:23 Temperature Pulse Rate 104 H 104 H 104 H Respiratory Rate Blood Pressure O2 Sat by Pulse 98 98 97 Oximetry 05/01/19 05/01/19 05/01/19 23:28 23:33 23:37 Temperature Pulse Rate 104 H 106 H 102 H Respiratory Rate Blood Pressure 81/45 O2 Sat by Pulse 97 98 Oximetry 05/01/19 05/01/19 05/01/19 23:38 23:43 23:48 Temperature Pulse Rate 106 H 104 H 105 H Respiratory Rate Blood Pressure O2 Sat by Pulse 97 98 97 Oximetry 05/01/19 05/01/19 05/02/19 23:53 23:58 00:03 Temperature Pulse Rate 113 H 105 H 111 H Respiratory Rate Blood Pressure O2 Sat by Pulse 98 98 96 Oximetry 05/02/19 05/02/19 05/02/19 00:07 00:08 00:13 Temperature Pulse Rate 113 H 117 H 107 H Respiratory Rate Blood Pressure 91/58 O2 Sat by Pulse 97 97 Oximetry 05/02/19 05/02/19 05/02/19 00:18 00:23 00:28 Temperature Pulse Rate 107 H 107 H 105 H Respiratory Rate Blood Pressure O2 Sat by Pulse 98 98 99 Oximetry 05/02/19 05/02/19 05/02/19 00:33 00:37 00:38 Temperature Pulse Rate 106 H 104 H 104 H Respiratory Rate Blood Pressure 89/55 O2 Sat by Pulse 98 97 Oximetry 05/02/19 05/02/19 05/02/19 00:43 00:48 00:53 Temperature Pulse Rate 103 H 103 H 103 H Respiratory Rate Blood Pressure O2 Sat by Pulse 99 99 98 Oximetry 05/02/19 05/02/19 05/02/19 00:58 01:03 01:08 Temperature Pulse Rate 102 H 104 H 102 H Respiratory Rate Blood Pressure 81/44 O2 Sat by Pulse 96 96 96 Oximetry 05/02/19 05/02/19 05/02/19 01:13 01:18 01:23 Temperature Pulse Rate 104 H 104 H 103 H Respiratory Rate Blood Pressure O2 Sat by Pulse 95 95 96 Oximetry 05/02/19 05/02/19 05/02/19 01:28 01:33 01:37 Temperature Pulse Rate 103 H 104 H 103 H Respiratory Rate Blood Pressure 84/45 O2 Sat by Pulse 96 95 Oximetry 05/02/19 05/02/19 05/02/19 01:38 01:43 01:48 Temperature Pulse Rate 105 H 117 H 112 H Respiratory Rate Blood Pressure O2 Sat by Pulse 95 98 98 Oximetry 05/02/19 05/02/19 05/02/19 01:53 01:58 02:03 Temperature Pulse Rate 112 H 106 H 104 H Respiratory Rate Blood Pressure O2 Sat by Pulse 99 96 96 Oximetry 05/02/19 05/02/19 05/02/19 02:07 02:08 02:13 Temperature Pulse Rate 107 H 109 H 109 H Respiratory Rate Blood Pressure 84/49 O2 Sat by Pulse 96 96 Oximetry 05/02/19 05/02/19 05/02/19 02:18 02:23 02:28 Temperature Pulse Rate 105 H 102 H 101 H Respiratory Rate Blood Pressure O2 Sat by Pulse 97 98 98 Oximetry 05/02/19 05/02/19 05/02/19 02:33 02:37 02:43 Temperature Pulse Rate 101 H 106 H 100 H Respiratory Rate Blood Pressure 93/53 O2 Sat by Pulse 97 97 97 Oximetry 05/02/19 05/02/19 05/02/19 02:48 02:53 02:58 Temperature Pulse Rate 100 H 101 H 104 H Respiratory Rate Blood Pressure O2 Sat by Pulse 97 96 96 Oximetry 05/02/19 05/02/19 05/02/19 03:03 03:07 03:08 Temperature Pulse Rate 102 H 102 H 104 H Respiratory Rate Blood Pressure 89/51 O2 Sat by Pulse 97 96 Oximetry 05/02/19 05/02/19 05/02/19 03:13 03:18 03:23 Temperature Pulse Rate 109 H 106 H 110 H Respiratory Rate Blood Pressure O2 Sat by Pulse 96 97 96 Oximetry 05/02/19 05/02/19 05/02/19 03:28 03:33 03:37 Temperature Pulse Rate 108 H 111 H 115 H Respiratory Rate Blood Pressure 100/53 O2 Sat by Pulse 96 97 Oximetry 05/02/19 05/02/19 05/02/19 03:38 03:43 03:48 Temperature Pulse Rate 112 H 110 H 108 H Respiratory Rate Blood Pressure O2 Sat by Pulse 97 97 97 Oximetry 05/02/19 05/02/19 05/02/19 03:53 03:58 04:03 Temperature Pulse Rate 107 H 106 H 109 H Respiratory Rate Blood Pressure O2 Sat by Pulse 96 97 96 Oximetry 05/02/19 05/02/19 05/02/19 04:07 04:08 04:13 Temperature Pulse Rate 107 H 109 H 109 H Respiratory Rate Blood Pressure 96/52 O2 Sat by Pulse 96 96 Oximetry 05/02/19 05/02/19 05/02/19 04:18 04:23 04:28 Temperature Pulse Rate 107 H 106 H 107 H Respiratory Rate Blood Pressure O2 Sat by Pulse 97 96 96 Oximetry 05/02/19 05/02/19 05/02/19 04:33 04:37 04:38 Temperature Pulse Rate 108 H 108 H 105 H Respiratory Rate Blood Pressure 97/54 O2 Sat by Pulse 96 97 Oximetry 05/02/19 05/02/19 05/02/19 04:43 04:48 04:53 Temperature Pulse Rate 106 H 107 H 105 H Respiratory Rate Blood Pressure O2 Sat by Pulse 97 96 98 Oximetry 05/02/19 05/02/19 05/02/19 04:58 05:03 05:07 Temperature Pulse Rate 105 H 118 H 109 H Respiratory Rate Blood Pressure 95/53 O2 Sat by Pulse 97 98 Oximetry 05/02/19 05/02/19 05/02/19 05:08 05:13 05:18 Temperature Pulse Rate 109 H 109 H 107 H Respiratory Rate Blood Pressure O2 Sat by Pulse 96 96 97 Oximetry 05/02/19 05/02/19 05/02/19 05:23 05:28 05:33 Temperature Pulse Rate 104 H 106 H 107 H Respiratory Rate Blood Pressure O2 Sat by Pulse 97 97 97 Oximetry 05/02/19 05/02/19 05/02/19 05:37 05:38 05:43 Temperature Pulse Rate 106 H 109 H 106 H Respiratory Rate Blood Pressure 90/51 O2 Sat by Pulse 98 97 Oximetry 05/02/19 05/02/19 05/02/19 05:44 05:48 05:51 Temperature Pulse Rate 107 H 109 H 107 H Respiratory Rate Blood Pressure O2 Sat by Pulse 94 95 94 Oximetry 05/02/19 05/02/19 05/02/19 05:53 05:57 05:58 Temperature Pulse Rate 108 H 107 H 105 H Respiratory Rate Blood Pressure O2 Sat by Pulse 94 94 94 Oximetry 05/02/19 05/02/19 05/02/19 06:03 06:07 06:08 Temperature Pulse Rate 109 H 111 H 103 H Respiratory Rate Blood Pressure 91/51 O2 Sat by Pulse 94 94 Oximetry 05/02/19 05/02/19 05/02/19 06:13 06:18 06:23 Temperature Pulse Rate 105 H 104 H 103 H Respiratory Rate Blood Pressure O2 Sat by Pulse 96 96 96 Oximetry 05/02/19 05/02/19 05/02/19 06:28 06:33 06:37 Temperature Pulse Rate 108 H 112 H 111 H Respiratory Rate Blood Pressure 93/54 O2 Sat by Pulse 96 95 94 Oximetry 05/02/19 05/02/19 05/02/19 06:38 06:43 06:48 Temperature Pulse Rate 111 H 105 H 105 H Respiratory Rate Blood Pressure O2 Sat by Pulse 95 95 95 Oximetry 05/02/19 05/02/19 05/02/19 06:53 06:58 07:03 Temperature Pulse Rate 102 H 104 H 105 H Respiratory Rate Blood Pressure O2 Sat by Pulse 95 95 95 Oximetry 05/02/19 05/02/19 05/02/19 07:08 07:13 07:18 Temperature Pulse Rate 114 H 107 H 105 H Respiratory Rate Blood Pressure 92/50 O2 Sat by Pulse 95 95 95 Oximetry - Exam Breasts: normal Cardiovascular: Regular rate Lungs: Clear to auscultation, Normal air movement Abdomen: Present: normal appearance, soft Uterine Contraction Monitor Mode: External Uterine Contraction Pattern: Irregular Uterine Tone Measurement Phase: Resting Extremities: normal Deep Tendon Reflex Grade: Normal +2 - Labs Labs: Abnormal Labs 04/30/19 05/01/19 05/01/19 08:00 01:17 05:31 RBC 3.05 L Hgb 7.6 L Hct 23.8 L MCV 78 L MCH 25 L RDW 17.6 H Coke % (Auto) 8.3 H Magnesium 5.70 H 5.70 H 05/01/19 05/01/19 05/02/19 11:22 18:28 00:17 RBC Hgb Hct MCV MCH RDW Coke % (Auto) Magnesium 6.00 H 5.50 H 4.70 H 05/02/19 06:25 RBC Hgb Hct MCV MCH RDW Coke % (Auto) Magnesium 4.40 H Laboratory Results - last 24 hr 05/01/19 05/01/19 05/02/19 11:22 18:28 00:17 Magnesium 6.00 H 5.50 H 4.70 H 05/02/19 06:25 Magnesium 4.40 H
--- NOTE | 2019-05-02 08:42 | Event Note ---
Date: 05/02/19 Pt has been ruled out for SROm via several spec exams (times two by two different midwives) currently is w/o contractions. As per report given to me she has been having borderline GIL being low. The GIL was not mentioned in the report that was done yesterday afternoon.Sono for GIL is ordered for this am. Will evaluate at this time. Currently no s/sx of labor. Steroids are completed as of yesterday afternoon and will d/c magnesium this am @ 1700.
[2019-05-02] MEDS: FEOSOL PO SCH ×2 (11:04→22:00)
[2019-05-02] MEDS: ZITHROMAX 500 MG in NACL 0.9% 250ML 250 ML IV SCH (11:05)
[2019-05-02] MEDS: PRENATAL VITAMIN PO SCH (11:05)
--- NOTE | 2019-05-02 13:07 | Event Note ---
Date: 05/02/19 BPP today is 2/8 with reactive nst and normal GIL 7.1cm. Will d/c magnesium and this time and place to repeat bpp 4 to 6 hrs after d/c the magnesium. Pt noted to have decel while sitting up eating. Will cont to closely monitor at this time.
--- NOTE | 2019-05-02 13:14 | Event Note ---
Date: 05/02/19 3 minutes decel noted in FHT while pt sitting up to eat lunch. FHT recovered spontaneously and is currently CAT1 . Dr. Boyce aware - plan DWP to d/c mag sulfate now and repeat BPP @ 1900. Pt verbalized understanding.
--- NOTE | 2019-05-02 15:13 | Ultrasound Report ---
BIOPHYSICAL PROFILE: INDICATION: Low fluid. COMPARISON: None similar. TECHNIQUE: Transabdominal ultrasound with Doppler interrogation. 0 - breathing movements 0 - movements 0 - posture and tone 2 - Qualitative amniotic fluid volume 2 - TOTAL SCORE OF POSSIBLE 8 Heart Rate (bpm) 127 CONCLUSION: Findings, as above.
--- NOTE | 2019-05-02 15:16 | Ultrasound Report ---
OB LIMITED INDICATION: Low fluid. COMPARISON: Yesterday. TECHNIQUE: Transabdominal grayscale ultrasound with Doppler interrogation. Gestation: Barnes Position: Cephalic Amniotic Fluid: WNL (7-24 cm) GIL = 7.1 cm Heart Rate: 137 BPM CONCLUSION: Findings, as above.
[2019-05-02] MEDS ORDERED: PEPCID IV ONE ×2 (21:13→21:15)
[2019-05-02] MEDS ORDERED: REGLAN IV ONE (21:13)
[2019-05-02] MEDS ORDERED: BICITRA PO ONE (21:13)
--- NOTE | 2019-05-02 21:13 | Event Note ---
Date: 05/02/19 BPP remains 2/8 after several hours. Tracing continues to show minimal variability with decelerations. I d/w that she is remote from delivery with these findings and we will proceed with delivery via c/s at this time as I don't feel the baby would tolerate the labor. Pt and her family expressed understanding and questions were addressed and answered. Pt inquired about a btl. I advised pt that she will need to have the consent signed prior to now. I advised that she can have it done pp but not at this time. Pt expressed understanding and all questions were addressed and answered.
[2019-05-02] MEDS ORDERED: REGLAN ONE (21:15)
[2019-05-02] MEDS ORDERED: ANCEF/STERILE WATER 2 GM/20 ML 2 GM/20 ML SYRINGE IV ONE (21:15)
[2019-05-02] MEDS ORDERED: BICITRA ONE (21:15)
[2019-05-02 21:40] LABS: Hemoglobin 6.4 gm/dl (10.1-14.3); Mean Corpuscular HGB Conc 33 % (30-34); Mean Corpuscular Volume 79 fl (79-97); Platelet Count 206 K/mm3 (140-440); Red Blood Count 2.51 M/mm3 (3.65-5.03); Red Cell Distribution Width 17.8 % (13.2-15.2)
[2019-05-02 21:46] LABS: Hematocrit 19.7 % (30.3-42.9)
[2019-05-02] MEDS ORDERED: NACL 0.9% 500 ML 500 ML IV ONE (21:56)
[2019-05-02] MEDS ORDERED: PITOCin/NS 20 UNIT/1000ML DRIP 20 UNITS/1,000 ML BAG IV SCH (22:00)
[2019-05-02] MEDS ORDERED: ANCEF/STERILE WATER 2 GM/20 ML 2 GM/20 ML SYRINGE IV NR (22:00)
[2019-05-02] MEDS ORDERED: WATER FOR IRRIG STERILE IR ONE (22:40)
[2019-05-02] MEDS ORDERED: NACL 0.9% IR ONE (22:40)
[2019-05-02] MEDS ORDERED: ZOFRAN ONE (23:46)
[2019-05-02] MEDS ORDERED: LACTATED RINGERS 1,000 ML ONE (23:46)
[2019-05-03] MEDS ORDERED: NACL 0.9% 500 ML 500 ML IV ONE (00:02)
[2019-05-03] MEDS ORDERED: NARCAN 0.4 MG/1 ML IV PRN ×2 (00:04→00:28)
[2019-05-03] MEDS ORDERED: TUCKS PAD TP PRN (00:04)
[2019-05-03] MEDS ORDERED: LANSINOH TP PRN (00:04)
[2019-05-03] MEDS ORDERED: DILAUDID IV PRN ×2 (00:04→00:28)
[2019-05-03] MEDS ORDERED: TORADOL IV PRN (00:04)
--- NOTE | 2019-05-03 00:27 | Anesthesia Consultation ---
Anesthesia Consult and Med Hx Date of service: 05/02/19 - Airway Anesthetic Teeth Evaluation: Good ROM Head & Neck: Adequate Mental/Hyoid Distance: Adequate Mallampati Class: Class II Intubation Access Assessment: Good - Pulmonary Exam CTA: Yes - Cardiac Exam Cardiac Exam: RRR - Pre-Operative Health Status ASA Pre-Surgery Classification: ASA3 Proposed Anesthetic Plan: Spinal - Pre-Anesthesia Comment Pre-Anesthesia Comments: Anemia, will start transfusion before - Pulmonary Hx Asthma: No COPD: No Hx Pneumonia: No - Cardiovascular System Hx Hypertension: No - Central Nervous System Hx Seizures: No Hx Psychiatric Problems: No - Endocrine Hx Renal Disease: No Hx End Stage Renal Disease: No Hx Hypothyroidism: No Hx Hyperthyroidism: No - Hematic Hx Anemia: Yes Hx Sickle Cell Disease: No - Other Systems Hx Alcohol Use: No
--- NOTE | 2019-05-03 00:27 | Anesthesia Day of Surgery ---
Anesthesia Day of Surgery - Day of Surgery Patient Examined: Yes Patient H&P Reviewed: Yes Patient is NPO: No
[2019-05-03] MEDS ORDERED: ZOFRAN IV PRN (00:28)
[2019-05-03] MEDS ORDERED: PHENERGAN PO PRN (00:28)
[2019-05-03] MEDS ORDERED: PHENERGAN PR PRN (00:28)
--- NOTE | 2019-05-03 00:28 | Operative Report ---
Operative Report Operative Report: Date of procedure: 05/02/2019 Pre-operative diagnosis: 32 1/7wks gestation Nonreassuring surveillance Remote from delivery Anemia Noncompliance Post-operative diagnosis: Same plus possible placenta abruption Procedure name(s): Primary low transverse section via Pfannenstiel skin incision Surgeon: Dr. Boyce Wood Type Finisher: ELIS Anesthesia: Spinal EBL: 1 L Urine output: 100 mL of clear urine at end of the procedure Fluids: 1500 mL of crystalloid; 500 mL of packed red blood cells Findings: Liveborn female infant cephalic presentation weight 3 lbs. 14 oz. Apgars of 4, 7 and 9 at 1, 5 and 10 minutes Grossly normal fallopian tubes and ovaries bilaterally A large amount of blood with delivery of the placenta was noted no specific clots were seen. Indications: Patient presented 10 was being treated for labor. She had received 2 doses of betamethasone as well as antibody ask. surveillance revealed biophysical profile of with each steady been 6 hours apart. Patient also was noted to have NST that was not reactive. Decision was made at this time to proceed with delivery via section as patient was remote from delivery. Consents were signed and placed on the chart. All risks benefits and alternatives were discussed the patient. Procedure: Patient was taking to the operating room. Patient was then prepped and draped in sterile fashion after anesthesia was found to be adequate. A low transverse skin incision was made with the scalpel and carried down to the underlying layer of fascia with the Bovie. The fascia was then incised in the midline and this incision was extended bilaterally with the Bovie. The superior aspect of the fascia was grasped with Ward clamps tented upward and dissected off of the anterior rectus muscles with the scalpel. In similar fashion the inferior aspect of the fascia was grasped with Ward clamps tented upward and dissected off of the anterior rectus muscles. The rectus muscles were then bluntly divided in the midline. The peritoneum was identified and entered into sharply. The Cory retractor was placed. The bladder blade was placed. The bladder flap was created using the Metzenbaum scissors. The bladder blade was replaced. A lower transverse uterine incision was made with the scalpel and extended bilaterally with the bandage scissors. Artificial rupture of membranes was performed yielding clear amniotic fluid. The 's head was then delivered atraumatically. The anterior shoulder and rest of delivered without difficulty. The cord was delayed clamping. The umbilical cord was clamped x2. The cord was cut. The was then placed in sterile bassinet. The cord blood was collected. The placenta was manually extracted in its entirety. The uterus was exteriorized and cleared of all clots and debris. The uterine incision was closed using 0 Vicryl in a running locking fashion. A second imbricating layer of the same suture was then created. The posterior cul-de-sac was copiously irrigated. The uterus was returned to the abdomen. The gutters were also irrigated. The anterior rectus muscles were reapproximated using 3-0 Vicryl. The anterior rectus fascia was reapproximated using 0 Vicryl in a running fashion. The subcuticular fat was reapproximated using 2-0 Vicryl in a running fashion. The skin was reapproximated with 4-0 Monocryl in a subcuticular stitch. The patient tolerated the procedure well. Sponge lap and needle counts were all correct x3. Patient was taken to the recovery room awake and in stable condition.
--- NOTE | 2019-05-03 00:28 | Post Anesthesia Evaluation ---
- Post Anesthesia Evaluation Patient Participated: Yes Airway Patent: Yes Stable Respiratory Function: Yes Nausea/Vomiting: No Temp > 96.8F: Yes Pain Manageable: Yes Adequeate Hydration: Yes Anesthesia Complications: No Block Receding Appropriately: Yes
[2019-05-03] MEDS ORDERED: NUBAIN IV PRN (00:29)
[2019-05-03] MEDS ORDERED: SODIUM CHLORIDE FLUSH SYRINGE 10 ML IV NR ×2 (01:00)
[2019-05-03] MEDS: TYLENOL PO SCH ×3 (01:00→12:00)
[2019-05-03] MEDS ORDERED: PITOCin/NS 20 UNIT/1000ML DRIP 20 UNITS/1,000 ML BAG IV SCH (01:00)
[2019-05-03] MEDS ORDERED: ROBINUL IV ONE (01:28)
[2019-05-03] MEDS: DILAUDID IV PRN ×2 (02:33→17:47)
[2019-05-03 02:58] LABS: Hematocrit 24.8 % (30.3-42.9); Hemoglobin 8.1 gm/dl (10.1-14.3)
[2019-05-03] MEDS: D5LR 1,000 ML IV SCH ×2 (06:09→14:25)
[2019-05-03] MEDS: TORADOL IV SCH ×2 (06:10→13:00)
[2019-05-03] MEDS: ANCEF/NS 1 GM/50 ML 1 GM/50 ML BAG IV SCH ×2 (06:15→14:26)
[2019-05-03] MEDS: PRENATAL VITAMIN PO SCH ×2 (10:30→10:31)
[2019-05-03] MEDS: FEOSOL PO SCH (10:31)
--- NOTE | 2019-05-03 10:51 | Progress Note ---
Assessment and Plan Pt resting without complaints, reports pain well controlled with current regimen. Lochia scant, fundus firm, dressing D&I, VSSAF. H&H ordered for 1200 today. Pt anxious to start pumping breast milk for baby - requested RN bring pt pump. Advance diet and activity as tolerated. Continue postop pathway. - Patient Problems (1) delivery delivered Current Visit: Yes Status: Acute Subjective - Subjective Date of service: 05/03/19 Principal diagnosis: postop day #1 s/p primary c/s Patient reports: pain well controlled, no flatus, no nauseated [place]: in NICU (pt requesting breastpump) Objective - Vital Signs Latest vital signs: Vital Signs Temp Pulse Resp BP BP Pulse Ox 05/03/19 03:55 98.1 F 89 16 96/57 98 05/03/19 01:45 98.1 F 98 H 20 98/60 99 05/03/19 00:19 97.9 F 57 L 18 104/80 96 05/02/19 21:31 102 H 98 05/02/19 21:26 102 H 98 05/02/19 21:21 112 H 97 05/02/19 21:16 107 H 96 05/02/19 21:11 104 H 98 05/02/19 21:06 106 H 96 05/02/19 21:01 113 H 97 05/02/19 20:56 107 H 99 05/02/19 20:51 106 H 96 05/02/19 20:46 105 H 97 05/02/19 20:41 108 H 99 05/02/19 20:39 109 H 116/69 05/02/19 20:36 104 H 97 05/02/19 20:31 105 H 98 05/02/19 20:26 105 H 97 05/02/19 20:21 109 H 98 05/02/19 20:16 107 H 97 05/02/19 20:11 105 H 98 05/02/19 20:06 100 H 97 05/02/19 20:01 110 H 98 05/02/19 19:59 116 H 92 05/02/19 19:56 104 H 98 05/02/19 19:51 110 H 97 05/02/19 19:46 106 H 97 05/02/19 19:41 111 H 98 05/02/19 19:36 111 H 98 05/02/19 19:31 109 H 98 05/02/19 19:26 112 H 97 05/02/19 19:21 110 H 98 05/02/19 19:16 110 H 97 05/02/19 19:11 114 H 97 05/02/19 19:06 108 H 98 05/02/19 19:01 115 H 98 05/02/19 18:56 111 H 97 05/02/19 18:51 107 H 96 05/02/19 18:46 112 H 97 05/02/19 18:41 102 H 97 05/02/19 18:36 108 H 98 05/02/19 18:31 105 H 98 05/02/19 18:26 100 H 98 05/02/19 18:21 100 H 98 05/02/19 18:16 99 H 98 05/02/19 18:11 105 H 98 05/02/19 18:06 101 H 98 05/02/19 18:01 103 H 98 05/02/19 17:56 104 H 98 05/02/19 17:51 108 H 98 05/02/19 17:46 98 H 98 05/02/19 17:41 96 H 97 05/02/19 17:36 103 H 98 05/02/19 17:34 110 H 93 05/02/19 17:31 103 H 98 05/02/19 17:26 100 H 96 05/02/19 17:21 102 H 97 05/02/19 17:16 99 H 97 05/02/19 17:11 98 H 97 05/02/19 17:06 100 H 98 05/02/19 17:01 102 H 98 05/02/19 17:00 98 H 102/61 05/02/19 16:56 101 H 98 05/02/19 16:51 97 H 97 05/02/19 16:46 103 H 98 05/02/19 16:41 98 H 98 05/02/19 16:36 101 H 98 05/02/19 16:31 97 H 98 05/02/19 16:26 101 H 98 05/02/19 16:21 103 H 96 05/02/19 16:16 105 H 98 05/02/19 16:11 103 H 97 05/02/19 16:06 104 H 97 05/02/19 16:01 107 H 97 05/02/19 15:56 104 H 97 0628/19 15:51 102 H 97 05/02/19 15:46 100 H 98 05/02/19 15:41 103 H 97 05/02/19 15:36 102 H 97 05/02/19 15:31 109 H 98 05/02/19 15:26 103 H 97 05/02/19 15:21 105 H 99 05/02/19 15:16 104 H 98 05/02/19 15:11 107 H 97 05/02/19 15:06 102 H 98 05/02/19 15:01 105 H 97 05/02/19 14:56 107 H 98 05/02/19 14:51 103 H 97 05/02/19 14:46 102 H 97 05/02/19 14:41 101 H 96 05/02/19 14:36 106 H 97 05/02/19 14:16 111 H 99 05/02/19 14:11 118 H 98 05/02/19 14:06 103 H 97 05/02/19 14:01 113 H 98 05/02/19 13:56 112 H 99 05/02/19 13:51 110 H 99 05/02/19 13:46 106 H 99 05/02/19 13:41 103 H 99 05/02/19 13:36 99 H 100 05/02/19 13:31 102 H 100 05/02/19 13:26 103 H 99 05/02/19 13:21 101 H 100 05/02/19 13:16 101 H 100 05/02/19 13:11 97 H 100 05/02/19 13:06 98 H 100 05/02/19 13:01 95 H 100 05/02/19 12:56 103 H 100 05/02/19 12:53 97.7 F 16 05/02/19 12:51 100 H 100 05/02/19 12:46 103 H 100 05/02/19 12:41 105 H 100 05/02/19 12:36 122 H 100 05/02/19 12:31 113 H 96 05/02/19 12:26 101 H 98 05/02/19 12:21 97 H 97 05/02/19 12:16 101 H 98 05/02/19 12:12 99 H 104/57 05/02/19 12:11 100 H 99 05/02/19 11:38 104 H 97 05/02/19 11:37 104 H 99/55 05/02/19 11:33 109 H 97 05/02/19 11:28 110 H 97 05/02/19 11:23 110 H 98 05/02/19 11:18 105 H 96 05/02/19 11:13 107 H 96 05/02/19 11:08 109 H 96 05/02/19 11:07 109 H 97/55 05/02/19 11:03 104 H 97 05/02/19 10:58 103 H 96 05/02/19 10:53 109 H 96 05/02/19 10:48 111 H 97 Intake and Output 05/02/19 05/03/19 05/03/19 23:59 07:59 15:59 Intake Total 1500 120 Output Total 800 300 Balance 700 -180 Intake: IV 1000 Oral 120 Blood Product 500 Output: Urine 800 300 Indwelling Catheter 800 300 Other: Total, Intake Amount 120 Total, Output Amount 400 300 Estimated Blood Loss 1,000 - Exam Breasts: Present: normal Cardiovascular: Present: Regular rate Lungs: Present: Clear to auscultation, Normal air movement Abdomen: Present: normal appearance, soft Vulva: both: normal Uterus: Present: normal, firm, fundal height below umbilicus Extremities: Present: normal Deep Tendon Reflex Grade: Normal +2 Incision: Present: normal, dry, dressed - Labs Labs: Abnormal lab results 04/30/19 05/02/19 05/02/19 Range/Units 16:05 12:55 21:30 RBC 2.51 L (3.65-5.03) M/mm3 Hgb 6.4 L (10.1-14.3) gm/dl Hct 19.7 L* (30.3-42.9) % MCH 26 L (28-32) pg RDW 17.8 H (13.2-15.2) % Magnesium 4.30 H (1.7-2.3) mg/dL Crossmatch See Detail 05/03/19 Range/Units 02:40 RBC (3.65-5.03) M/mm3 Hgb 8.1 L (10.1-14.3) gm/dl Hct 24.8 L (30.3-42.9) % MCH (28-32) pg RDW (13.2-15.2) % Magnesium (1.7-2.3) mg/dL Crossmatch
[2019-05-03] MEDS: ZITHROMAX PO SCH (13:02)
[2019-05-03 13:28] LABS: Hematocrit 21.9 % (30.3-42.9); Hemoglobin 7.2 gm/dl (10.1-14.3)
[2019-05-03] MEDS: TRIMOX PO SCH (17:43)
[2019-05-04] MEDS: IBUPROFEN PO PRN ×2 (00:24→09:58)
[2019-05-04] MEDS: NORCO 5/325 PO PRN (00:25)
[2019-05-04] MEDS: TORADOL IV SCH ×3 (05:55→17:43)
[2019-05-04] MEDS: TRIMOX PO SCH ×3 (05:59→14:35)
[2019-05-04] MEDS: FEOSOL PO SCH ×3 (06:02→21:49)
[2019-05-04] MEDS: TYLENOL PO SCH ×4 (06:05→17:43)
[2019-05-04] MEDS: PRENATAL VITAMIN PO SCH (09:58)
[2019-05-04] MEDS: ZITHROMAX PO SCH (09:58)
--- NOTE | 2019-05-04 12:40 | Progress Note ---
Assessment and Plan patient doing well, denies pain at this time. Dressing D&I - informed pt dressing needs to be removed. she requests waiting until after shower. Encouraged pt to increase activity as tolerated, encouraged NICU visits. VSSAF. - Patient Problems (1) delivery delivered Current Visit: Yes Status: Acute Plan to address problem: Continue postop pathway encouraged increased activity as tolerated RN to removed dressing after shower today (2) Anemia Current Visit: Yes Status: Acute Plan to address problem: Asymptomatic, exisiting anemia H&H slightly decreased from admission (s/p transfusion 2 units) (admission: 7.6/23.8, postop 7.2/21.9) FE supplementation monitor for s/s worsening anemia Subjective - Subjective Date of service: 05/04/19 Principal diagnosis: postop day #2 s/p primary c/s Patient reports: appetite normal, voiding normally, pain well controlled, flatus, ambulating normally, no dizzy ambulation, no nauseated : in NICU (pt pumping breast milk for baby) Objective - Vital Signs Latest vital signs: Vital Signs Temp Pulse Resp BP Pulse Ox 05/04/19 08:57 98.2 F 61 16 102/67 96 05/03/19 23:08 99.2 F 89 20 116/72 96 05/03/19 16:29 98.5 F 61 16 109/71 93 Intake and Output 05/03/19 05/04/19 05/04/19 23:59 07:59 15:59 Intake Total 1080 120 360 Output Total 900 400 Balance 180 -280 360 Intake: Oral 720 120 360 Intake, Free Water 360 Output: Urine 900 400 Void 900 400 Other: Total, Intake Amount 240 120 360 Total, Output Amount 600 400 # Voids Void 2 3 1 - Exam Breasts: Present: normal, Cardiovascular: Present: Regular rate Lungs: Present: Clear to auscultation, Normal air movement Abdomen: Present: normal appearance, soft. Absent: distention, tenderness, guarding Vulva: both: normal Uterus: Present: normal, firm, fundal height below umbilicus Extremities: Present: normal Incision: Present: normal, dry, dressed - Labs Labs: Abnormal lab results 04/30/19 05/03/19 Range/Units 16:05 12:53 Hgb 7.2 L (10.1-14.3) gm/dl Hct 21.9 L (30.3-42.9) % Crossmatch See Detail
[2019-05-04] MEDS: TYLENOL PO PRN (14:34)
--- NOTE | 2019-05-04 17:30 | Ultrasound Report ---
PROCEDURE: US OB BPP WO NON-STRESS TECHNIQUE: Ultrasound obstetrical biophysical profile HISTORY: ABNORMAL BPP COMPARISONS: FINDINGS: Biophysical profile performed breathing movement 0 movement 0 tone 0 Amniotic fluid volume 2 Total biophysical profile 12/13. cardiac activity present with heart rate 1 40 bpm IMPRESSION: Abnormal biophysical profile 12/13 The obstetrical team was notified by technologist at the time of the exam This document is electronically signed by Randy Powell MD., May 04 2019 05:28:24 PM ET
[2019-05-05] MEDS: TRIMOX PO SCH ×2 (00:20→11:08)
[2019-05-05] MEDS: IBUPROFEN PO PRN (00:20)
[2019-05-05] MEDS: NORCO 5/325 PO PRN (05:39)
[2019-05-05] MEDS ORDERED: BOOSTRIX IM ONE (06:00)
--- NOTE | 2019-05-05 06:31 | Discharge Summary ---
Providers - Providers Date of Admission: 04/30/19 15:54 Date of discharge: 05/05/19 (pt agrees with d/c) Attending physician: ASHUTOSH HUMMEL 05/01/19 13:52 Consult to Physician [CONS] Routine Comment: Consulting Provider: KIM ALLAN Physician Instructions: Reason For Exam: labor 05/02/19 20:24 Consult to Physician [CONS] Urgent Comment: Consulting Provider: CHAD DELGADO Physician Instructions: Reason For Exam: bpp 2/8 times two 6 hours apart Primary care physician: ASHUTOSH HUMMEL Hospitalization Reason for admission: labor Delivery: Procedure: primary low transverse Episiotomy: none Laceration: none Incision: normal, dry, intact Other procedures: none complications: none Discharge diagnosis: delivery [place] baby: female Hospital course: non-reassuring evaluation remote from delivery; uncomplicated section Pt resting No c/o voiced VSS FF below umb Lochia scant Incision D&I H&H stable No s/sx of anemia Doing well s/p c/s P:d/c today with instructions RTO 1 week postop Condition at discharge: Good Disposition: DC-01 TO HOME OR SELFCARE - Discharge Diagnoses (1) delivery delivered Status: Acute Comment: RTO 1 week postop visit Plan - Discharge Medications Prescriptions: Docusate Sodium [Colace] 100 mg PO BID PRN #60 capsule PRN Reason: Constipation Ibuprofen [Motrin 800 MG tab] 800 mg PO Q6HR PRN #30 tablet PRN Reason: Pain, Moderate (4-6) oxyCODONE /ACETAMINOPHEN [Percocet 5/325] 1 tab PO Q4HR #30 tab - Provider Discharge Summary Activity: routine, no sex for 6 weeks, no heavy lifting 4 weeks, no strenuous exercise Diet: routine Instructions: routine Additional instructions: [] Smoking cessation referral if applicable(refer to patient education folder for contact #) [] Refer to [facility] Booklet Call your doctor immediately for: * Fever > 100.5 * Heavy vaginal bleeding ( >1 pad per hour) * Severe persistent headache * Shortness of breath * Reddened, hot, painful area to leg or breast * Drainage or odor from incision. * Keep incision clean and dry at all times and follow doctor's instructions regarding bathing/showering - Follow up plan Follow up: ASHUTOSH HUMMEL MD [Primary Care Provider] - 7 Days (Congratulations! Please call [phone] to schedule your postoperative visit in 1 week. Take medications as prescribed. Call with concerns.)
[2019-05-05 09:45] VITALS: BP 113/61
[2019-05-05] MEDS: FEOSOL PO SCH (10:36)
[2019-05-05] MEDS: PRENATAL VITAMIN PO SCH (10:36)
[2019-05-05] MEDS: ZITHROMAX PO SCH (11:06)
== END 2019-05-05 11:25 | disposition home or self-care (01) | DRG 765 ==
LOC: TRG 06:43 → LD 12:16 → TRG 15:53 → LD 15:54 → OB 05-03 02:00
PROVIDERS: ADMIT Obstetrics & Gynecology; ATTEND Obstetrics & Gynecology
PROC: 10D00Z1 Extraction of Products of Conception, Low, Open Approach (ICD-10-PCS; principal; 2019-05-02)
PROC: 30233N1 Transfusion of Nonautologous Red Blood Cells into Peripheral Vein, Percutaneous Approach (ICD-10-PCS; 2019-05-02)
PROC: 30233S1 Transfusion of Nonautologous Globulin into Peripheral Vein, Percutaneous Approach (ICD-10-PCS; 2019-05-03)
PROC: 3E0234Z Introduction of Serum, Toxoid and Vaccine into Muscle, Percutaneous Approach (ICD-10-PCS; 2019-05-05)
DX: O41.03X0 Oligohydramnios, third trimester, not applicable or unspecified (principal); O60.14X0 Preterm labor third trimester with preterm delivery third trimester, not applicable or unspecified; O45.93 Premature separation of placenta, unspecified, third trimester; O76 Abnormality in fetal heart rate and rhythm complicating labor and delivery; O99.02 Anemia complicating childbirth; Z37.0 Single live birth; Z23 Encounter for immunization; Z3A.31 31 weeks gestation of pregnancy
CPT/HCPCS: 36415; 59025; 76815; 76816; 76819; 81001; 83735; 85014; 85018; 85025; 85027; 85461; 86850; 86870; 86900; 86901; 86920; 88307; 90471; 90715; 96360; G0378; C9250; J0290; J0456; J0690; J0702; J1170; J1885; J2405; J2590; J2765; J2790; J3105; J3475; J7050; J7120; J7121; P9016